=== PATIENT | male | born 1970 | race Caucasian/White ===

== ENCOUNTER 2017-07-08 17:05 | Emergency (ER) | payer SELFPAY ==
[2017-07-08 17:33] VITALS: BMI 19.6
[2017-07-08 19:08] LABS: BILIRUBIN,URINE NEGATIVE (NEGATIVE); BLOOD/HEMOGLOBIN,URINE NEGATIVE (NEGATIVE); GLUCOSE, URINE NEGATIVE (NEGATIVE); KETONES,URINE NEGATIVE (NEGATIVE); LEUKOCYTE ESTERASE ,URINE 1+ (NEGATIVE); NITRITES,URINE NEGATIVE (NEGATIVE); PH,URINE 6.5 (5.0 - 8.0); PROTEIN,URINE 1+ (NEGATIVE); UROBILINOGEN,URINE NORMAL (NORMAL)
[2017-07-08 19:16] LABS: APPEARANCE,URINE CLEAR (CLEAR); COLOR,URINE YELLOW (YELLOW)
[2017-07-08 19:17] LABS: AMORPHOUS SEDIMENT,UR 1+ /HPF (NEGATIVE); BACTERIA,URINE TRACE /HPF (NEGATIVE); RBC,URINE 0-1 /HPF (NEGATIVE); SQUAMOUS EPITHELIAL CELL,UR NEGATIVE /HPF (NEGATIVE)
[2017-07-08 20:14] LABS: BASOPHILS # (AUTO) 0.1 X10^3/uL (0.0-0.1); BASOPHILS % (AUTO) 0.7 % (0.2-1.0); EOSINOPHILS # (AUTO) 0.7 x10^3/uL (0.0-0.2); EOSINOPHILS % (AUTO) 5.8 % (0.9-2.9); HEMOGLOBIN 14.5 g/dL (13.5-18.0); LYMPHOCYTES # (AUTO) 2.8 X10^3/uL (1.3-2.9); LYMPHOCYTES % (AUTO) 23.8 % (21.0-51.0); MEAN CORPUSCULAR HEMOGLOBIN 31.2 pg (27.0-34.0); MEAN CORPUSCULAR HGB CONC 34.5 g/dL (33.0-35.0); MEAN CORPUSCULAR VOLUME 90.3 fL (80.0-100.0); MEAN PLATELET VOLUME 7.7 fL (7.4-11.0); MONOCYTES # (AUTO) 0.8 x10^3/uL (0.3-0.8); NEUTROPHILS # (AUTO) 7.2 x10^3/uL (2.2-4.8); NEUTROPHILS % (AUTO) 62.7 % (42.0-75.0); PLATELET COUNT 291 X10^3/uL (150.0-450.0); RED BLOOD COUNT 4.65 X10^6/uL (4.7-6.0); RED CELL DISTRIBUTION WIDTH 13.1 % (11.6-16.5); WHITE BLOOD COUNT 11.6 X10^3/uL (3.6-10.0)
[2017-07-08 20:29] LABS: ALANINE AMINOTRANSFERASE 12 Units/L (12-78); ALBUMIN 3.5 g/dL (3.4-5.0); ALKALINE PHOSPHATASE 82 Units/L (46-116); AMYLASE 80 Units/L (25-115); ASPARTATE AMINO TRANSFERASE 15 Units/L (15-37); BLOOD UREA NITROGEN 18 mg/dL (7-18); CALCIUM 9.1 mg/dL (8.5-10.1); CARBON DIOXIDE 28.7 mmol/L (21-32); CHLORIDE 102 mmol/L (98-107); CREATININE 0.87 mg/dL (0.70-1.30); LIPASE 293 Units/L (73-393); SODIUM 137 mmol/L (136-145); TOTAL PROTEIN 7.6 g/dL (6.4-8.2); eGFR BLACK RACES > 60 (>60); eGFR NON BLACK RACES > 60 (>60)
--- NOTE | 2017-07-08 20:49 | RAD ---
HISTORY: Abdominal pain since Thanksgiving. Patient says he used meth prior to Thanksgiving. Study: Acute abdominal series Comparison: None. Findings: The trachea is midline. The cardiac silhouette is unremarkable. The lungs are clear without focal i nfiltrate or effusion. The bony thorax is unremarkable. Flat plate and upright evaluation of the abdomen demonstrates a markedly distended stomach with inter nal debris. Otherwise, there is a nonspecific/nonobstructive bowel gas pattern with air and stool to the level of the rectum. No obvious free air. No pathological soft tissue mass or calcification can be observed. The bony structures are grossly intact. IMPRESSION: 1. No acute cardiopulmonary disease. 2. Nonspecific distention of the stomach. Remaining bowel gas pattern is unremarkable. Reported By:
--- NOTE | 2017-07-08 21:18 | DR.GENAD ---
HPI - PCP Primary Care Physician: dev smith - Complaint/Symptoms Chief Complaint Doctors Comments: He states he has abdominal pain x 5 days Chief Complaint:: abd pain since -says he used meth just prior to -has not been able to eat or drink for several days-pt c/o very bad smell to breath-pt says "my sarah smells rotten" Self Treatment fo Chief Complaint: went to [facility] earlier-left due to long wait - Source History Provided: Patient, Family Member - Mode of Arrival Mode of Arrival: Ambulatory - Timing Onset of Chief Complaint: 07/03/17 PMH - PMH Past Medical History: No Past Surgical History: Yes Past Surgical History Comment: unknown throat surgery as a child - Family History History of Family Medical Conditions: No - Social History Does patient currently use any type of tobacco product: Yes Have you used tobacco products in the last 12 months: Yes Type of Tobacco Use: Cigarettes - infectious screening In the last 2 months have you had wt loss of >10#?: NO Have you had fever, night sweats or hemotysis?: No Have you traveled outside the country in the last 6 months?: No Isolation: Standard ROS - Review of Systems Constitutional: No Symptoms Reported Eyes: No Symptoms Reported ENTM: No Symptoms Reported Respiratoy: No Symptoms Reported Cardiovascular: No Symptoms Reported Gastrointestinal/Abdominal: Abdominal Pain Genitourinary: No Symptoms Reported Neurological: No Symptoms Reported Musculoskeletal: No Symptoms Reported Integumentary: No Symptoms Reported, Other Hematologic/Lymphatic: No Symptoms Reported Endocrine: No Symptoms Reported Psychiatric: No Symptoms Reported All Other Systems: Reviewed and Negative PE - Vital Signs Vitals: Temperature 100.3 F Pulse Rate 86 Respiratory Rate 16 Blood Pressure [Left Arm] 156/94 Blood Pressure 144/100 O2 Sat by Pulse Oximetry 98 - General Limitations: No Limitations General Appearance: Alert, In No Apparent Distress - Head Head Exam: Normal Inspection - Eyes Eye exam: Normal Appearance - ENT ENT Exam: Normal Exam External Ear Exam: Normal External Inspection - Neck Neck Exam: Normal Inspection - Chest Chest Inspection: Normal Inspection - Respiratory Respiratory Exam: Normal Lung Sounds Bilat - Cardiovascular Cardiovascular Exam: Regular Rate, Normal Rhythm - Abdominal Exam Abdominal Exam: Normal Inspection, Normal Bowel Sounds, Soft, Other. negative: Distention, Tenderness, Incision - Extremities Extremities Exam: Normal Inspection - Back Back Exam: Normal Inspection - Neurologic Neurological Exam: Alert, Oriented X3, CN II-XII Intact - Psychiatric Psychiatric Exam: Normal Affect, Normal Mood - Skin Skin Exam: Warm, Dry, Intact, Normal Color ROR - Labs Reviewed Result Diagrams: 07/08/17 20:05 07/08/17 20:05 Laboratory: WBC 11.6 X10^3/uL (3.6-10.0) H 07/08/17 20:05 RBC 4.65 X10^6/uL (4.7-6.0) L 07/08/17 20:05 Hgb 14.5 g/dL (13.5-18.0) 07/08/17 20:05 Hct 42.0 % (42.0-54.0) 07/08/17 20:05 MCV 90.3 fL (80.0-100.0) 07/08/17 20:05 MCH 31.2 pg (27.0-34.0) 07/08/17 20:05 MCHC 34.5 g/dL (33.0-35.0) 07/08/17 20:05 RDW 13.1 % (11.6-16.5) 07/08/17 20:05 Plt Count 291 X10^3/uL (150.0-450.0) 07/08/17 20:05 MPV 7.7 fL (7.4-11.0) 07/08/17 20:05 Neut % 62.7 % (42.0-75.0) 07/08/17 20:05 Lymph % 23.8 % (21.0-51.0) 07/08/17 20:05 Atlantic % 7.0 % (0.0-13.0) 07/08/17 20:05 Eos % 5.8 % (0.9-2.9) H 07/08/17 20:05 Baso % 0.7 % (0.2-1.0) 07/08/17 20:05 Neut # 7.2 x10^3/uL (2.2-4.8) H 07/08/17 20:05 Lymph # 2.8 X10^3/uL (1.3-2.9) 07/08/17 20:05 Atlantic # 0.8 x10^3/uL (0.3-0.8) 07/08/17 20:05 Eos # 0.7 x10^3/uL (0.0-0.2) H 07/08/17 20:05 Baso # 0.1 X10^3/uL (0.0-0.1) 07/08/17 20:05 Absolute Nucleated RBC 0.0 /100WBC 07/08/17 20:05 Sodium 137 mmol/L (136-145) 07/08/17 20:05 Corrected Sodium TNP 07/08/17 20:05 Potassium 4.3 mmol/L (3.5-5.1) 07/08/17 20:05 Chloride 102 mmol/L (98-107) 07/08/17 20:05 Carbon Dioxide 28.7 mmol/L (21-32) 07/08/17 20:05 BUN 18 mg/dL (7-18) 07/08/17 20:05 Creatinine 0.87 mg/dL (0.70-1.30) 07/08/17 20:05 Est GFR (MDRD) Af Amer > 60 (>60) 07/08/17 20:05 Est GFR (MDRD) Non-Af > 60 (>60) 07/08/17 20:05 Glucose 89 mg/dL (65-99) 07/08/17 20:05 Calcium 9.1 mg/dL (8.5-10.1) 07/08/17 20:05 Corrected Calcium TNP 07/08/17 20:05 Total Bilirubin 0.40 mg/dL (0.2-1.0) 07/08/17 20:05 AST 15 Units/L (15-37) 07/08/17 20:05 ALT 12 Units/L (12-78) 07/08/17 20:05 Alkaline Phosphatase 82 Units/L (46-116) 07/08/17 20:05 Total Protein 7.6 g/dL (6.4-8.2) 07/08/17 20:05 Albumin 3.5 g/dL (3.4-5.0) 07/08/17 20:05 Globulin 4.1 g/dL (2.5-4.5) 07/08/17 20:05 Albumin/Globulin Ratio 0.9 Ratio (1.1-2.1) L 07/08/17 20:05 Amylase 80 Units/L (25-115) 07/08/17 20:05 Lipase 293 Units/L (73-393) 07/08/17 20:05 Specimen Type Clean catch urine 07/08/17 18:59 Urine Color Yellow (YELLOW) 07/08/17 18:59 Urine Appearance Clear (CLEAR) 07/08/17 18:59 Urine pH 6.5 (5.0 - 8.0) 07/08/17 18:59 Ur Specific [place] 1.015 (1.000-1.030) 07/08/17 18:59 Urine Protein 1+ (NEGATIVE) 07/08/17 18:59 Urine Glucose (UA) Negative (NEGATIVE) 07/08/17 18:59 Urine Ketones Negative (NEGATIVE) 07/08/17 18:59 Urine Occult Blood Negative (NEGATIVE) 07/08/17 18:59 Urine Nitrite Negative (NEGATIVE) 07/08/17 18:59 Urine Bilirubin Negative (NEGATIVE) 07/08/17 18:59 Urine Urobilinogen Normal (NORMAL) 07/08/17 18:59 Ur Leukocyte Esterase 1+ (NEGATIVE) 07/08/17 18:59 Urine RBC 0-1 /HPF (NEGATIVE) 07/08/17 18:59 Urine WBC 1-2 /HPF (NEGATIVE) 07/08/17 18:59 Ur Squamous Epith Cells Negative /HPF (NEGATIVE) 07/08/17 18:59 Amorphous Sediment 1+ /HPF (NEGATIVE) 07/08/17 18:59 Urine Bacteria Trace /HPF (NEGATIVE) 07/08/17 18:59 Ur Culture Indicated? No/not indicated 07/08/17 18:59 - XRAY XRAY Interpreted by: Radiologist (AAS: no acute cardiopulmonary disease. non- specific stomach distention with internal debris.) - Diagnosis Discharge Problem: Abdominal pain, Drug abuse, episodic use - Discharge Plan Disposition: ADMITTED INPATIENT Condition: Stable - Follow ups/Referrals Follow ups/Referrals: NFD,None [Primary Care Provider] - 3 days - Instructions Instructions: Abdominal Pain, Adult, [id number]
[2017-07-08] MEDS ORDERED: NS 1000 ML 1,000 ML IV ONE (21:19)
[2017-07-08] MEDS ORDERED: NS 1000 ML 0 ML ONE (21:23)
[2017-07-08 21:38] VITALS: BP 156/94
== END 2017-07-08 21:38 | disposition other institution (70) ==
LOC: ER 17:05
DX: R10.84 Generalized abdominal pain (principal); F14.10 Cocaine abuse, uncomplicated
CPT/HCPCS: 36415; 74022; 80053; 81001; 82150; 83690; 85025; 99282; 99283